=== PATIENT | female | born 1990 | race Two or more races ===

== ENCOUNTER 2025-06-13 12:55 | Emergency (ER) | payer BC, SELFPAY ==
[2025-06-13 13:12] VITALS: BP 127/77; PULSE 108; RESP 18; TEMP 36.9; O2SAT 100; BMI 35.7
--- NOTE | 2025-06-13 13:12 | XR_ITS ---
Examination: Abdomen sonogram, Limited Date and time of exam: June 13, 2025 1350 hrs. Indications: Epigastric pain and right upper abdominal pain onset today Technique: Real-time carlisle scale transabdominal sonographic images of the upper abdomen obtained. Findings: Absent gallbladder Normal common bile duct Pancreatic head 1.7 cm Liver 14.6 cm fatty infiltration Normal hepatopedal portal venous oh Patent IVC Impression: Normal common bile duct Liver normal size fatty infiltration no focal liver lesions.
--- NOTE | 2025-06-13 13:13 | EDNOTE_ITS ---
<Statement entered by Perlita Landis MD - 06/14/25 06:25> As co-signing physician, I was present and available for consult prn. I concur with the plan and care as documented by the midlevel provider. Nausea/Vomit./Diarrhea-RME/HPI General Chief complaint: Nausea/Vomiting/Diarrhea Stated complaint: Vomiting today, abdominal pain Time Seen by Provider: 06/13/25 13:02 Arrival date/time: 06/13/25 12:55 RME / HPI RME / HPI Narrative: 35-year-old female patient came in for evaluation regarding epigastric pain. Patient woke up this morning with epigastric pain, described as crampy, described severity moderate. Patient also complained of loose stool earlier today. Also complained of vomiting, bilious like vomitus. No fever. Abdominal surgery include open cholecystectomy in the past. Denies any other complaints. Related Data Previous Rx's ?Medication ?Instructions ?Recorded dicyclomine 20 mg tablet 20 mg PO Q8HR PRN Abdominal cramps 07/05/19 #10 tabs prochlorperazine maleate 10 mg 10 mg PO QDAY PRN nause a and 07/05/19 tablet vomiting #5 tabs cephalexin 500 mg capsule 500 mg PO TID 7 days #21 cap s 06/13/25 pantoprazole 40 mg tablet,delayed 40 mg PO QDAY #20 ta bs 06/13/25 release (Protonix) Allergies Allergy/AdvReac Type Severity Reaction Status Date / Time hydrocodone Allergy Abdominal Verified 06/13/25 13:00 Pain Review of Systems Review of Systems Narrative Review of Systems: Review of system reviewed and within normal limits except mentioned in HPI ED Exam Narrative Physical exam: VITAL SIGNS: Reviewed. GENERAL APPEARANCE: Alert and interactive, follows commands, no acute distress, HEAD AND FACE: Non-traumatic. ENT: PERRL, pink conjunctivitis, eyelid no trauma, Mucous membrane moist. NECK: Supple, nontender, no nuchal rigidity. CHEST: No tenderness, no crepitus, no paradoxical movement, no retractions. LUNGS: Clear, well ventilated, symmetric, no rales, no wheezing, no ronchi, no stridor, good breath sounds bilaterally. HEART: Regular rate, regular rhythm, no murmur, no gallops. ABDOMEN: Soft, positive bowel sounds, nondistended, no guarding, epigastric tenderness, no rebound, no masses, RECTAL: Deferred. GENITAL: Deferred. NEUROLOGICAL: Gross motor function intact sensory function intact, Appropriate for age. MUSCULOSKELETAL: low back nontender, full range of motion. EXTREMITIES: Nontender, full range of motion. SKIN: Color pink, dry, no rash, no lacerations, no abrasions, no contusions. LYMPHATICS: Deferred. Course Quality Measures none Orders Category Date Time Status US gall bladder Stat Exams 06/13/25 13:12 Completed CBC Stat Lab 06/13/25 14:31 Completed Comprehensive Metabolic Panel Stat Lab 06/13/25 14:31 Completed HCG Qualitative,Urine Stat Lab 06/13/25 14:57 Completed Lipase Stat Lab 06/13/25 14:31 Completed Prothrombin Time with INR Stat Lab 06/13/25 14:31 Completed UA, C/S IF [Urinalysis, C/S if Indicated] Stat Lab 06/13/25 14:57 Completed Urine Culture Stat Lab 06/13/25 14:57 Received Dicyclomine [Bentyl] Med 06/13/25 13:12 Discontinued 10 mg PO X1 ONE Ketorolac Inj [Toradol Inj] Med 06/13/25 13:12 Discontinued 30 mg IM X1 ONE Ondansetron Odt [Zofran Odt] Med 06/13/25 13:15 Discontinued 4 mg PO X1 ONE mg Hyd/Al Hyd/Travis Susp [Maalox Susp] Med 06/13/25 13:12 Discontinued 30 ml PO X1 ONE Vital Signs Vital signs: Vital Signs Temperature 98.4 F 06/13/25 13:12 Pulse Rate 108 H 06/13/25 13:12 Respiratory Rate 18 06/13/25 13:12 Blood Pressure 127/77 06/13/25 13:12 Pulse Oximetry (%) 100 06/13/25 13:12 Oxygen Delivery Method Room Air 06/13/25 13:12 Nausea/Vomiting/Diarrhea MDM Narrative MDM Narrative:: 35-year-old female patient came in for evaluation regarding epigastric pain. Patient woke up this morning with epigastric pain, described as crampy, described severity moderate. Patient also complained of loose stool earlier today. Also complained of vomiting, bilious like vomitus. No fever. Abdominal surgery include open cholecystectomy in the past. Denies any other complaints. Laboratory workup positive for UTI otherwise unremarkable ultrasound also came back normal. Patient was given Maalox, Bentyl and Toradol with complete resolution of symptoms. Patient data External records reviewed:: None Clinical information provided by:: patient Social determinants that could affect healthcare access:: none Patient has the following chronic illnesses:: None How is presenting disease/condition affected by chronic disease/condition?: no chronic disease Evaluation data The following diagnostics were reviewed and interpreted by me:: lab results and radiology exam(s) Lab and/or radiology exams considered but not ordered:: None Interpretation Summary: See results in [facility] Medications / Prescriptions Medications / Prescriptions considered but not ordered:: None Medication administrations:: Medication Administration History Discontinued Medications Al Hydrox/Mg Hydrox/Simethicone (Mg Hyd/Al Hyd/Travis (Maalox Reg) Susp 30 Ml Udc) 30 ml PO X1 ONE Stop: 06/13/25 13:13 Last Admin: 06/13/25 15:02 Dose: 30 ml Documented By: AYAKA Dicyclomine HCl (Dicyclomine 10 Mg Capsule) 10 mg PO X1 ONE Stop: 06/13/25 13:13 Last Admin: 06/13/25 15:01 Dose: 10 mg Documented By: AYAKA Ketorolac Tromethamine (Ketorolac Inj 60 Mg/2 Ml Vial) 30 mg IM X1 ONE Stop: 06/13/25 13:13 Last Admin: 06/13/25 15:03 Dose: 30 mg Documented By: AYAKA Ondansetron HCl (Ondansetron Odt 4 Mg Tabrap) 4 mg PO X1 ONE; Protocol Stop: 06/13/25 13:16 Last Admin: 06/13/25 15:01 Dose: 4 mg Documented By: AYAKA None Consultations Consultation(s) initiated? (list below): No Diagnosis Nausea Differential Diagnosis: dehydration and other (Gastritis, UTI) Most likely diagnosis given after review of the tests above:: Gastritis, UTI Admission Indicated Admission indicated?: not indicated Explain why admission is indicated or not indicated:: None Admission Request Was there a request for admission?: No Disposition Plan Disposition Plan: Discharge Discharge Attestation Discharge Attestation: The patient was given an opportunity to ask questions and understood the discharge instructions. Discharge instructions specifically effects, indications for sooner follow up or return to the emergency department, and the expected course of current diagnosis. Patient condition: Stable Discharge Plan Plan Patient Disposition: HOME (Self Care) Discharge Disposition comment: Stable Prescriptions/Referrals Prescriptions/Med Rec: New cephalexin 500 mg capsule 500 mg PO TID 7 Days Qty: 21 0RF pantoprazole [Protonix] 40 mg tablet,delayed release (DR/EC) 40 mg PO QDAY Qty: 20 0RF No Action prochlorperazine maleate 10 mg tablet 10 mg PO QDAY PRN (Reason: nausea and vomiting) Qty: 5 0RF dicyclomine 20 mg tablet 20 mg PO Q8HR PRN (Reason: Abdominal cramps) Qty: 10 0RF Referrals: Feliz Dove DO [Primary Care Provider] - In 1 week Problem List Clinical Impression: UTI (urinary tract infection), Gastritis Patient/Caregiver Discharge Instructions Discharge Activity: activity as tolerated Education Materials: ED Gastritis (Adult) Additional Instructions: Thank you for the opportunity for serving you today. You are stable for discharged . You are advised to: Follow-up with your PCP in 1 to 2 days Return to ED for worsening of symptoms Increase oral fluids Take medication as prescribed Print Language: Swazi Stand Alone Forms: Alejandra Award Info., Patient Portal Info Letter PA/HIV/AIDS CARE NURSE Supervising Physician PA/HIV/AIDS CARE NURSE Supervising Physician: MD Boby
[2025-06-13 14:46] LABS: Basophils # (Auto) 0.0 Thou/mm3 (0.0-0.2); Basophils % (Auto) 0 % (0-2.5); Eosinophils # (Auto) 0.0 Thou/mm3 (0.0-0.5); Eosinophils % (Auto) 0 % (0-10); Hematocrit 41.0 % (36.0-46.0); Hemoglobin 13.7 g/dL (12.0-16.0); Immature Granulocytes Auto 0.02 Thou/mm3 (0.00-0.00); Lymphocytes # (Auto) 0.9 Thou/mm3 (1.0-4.8); Lymphocytes % (Auto) 7 % (10-50); Mean Corpuscular HGB Conc 33.4 g/dl (31.0-37.0); Mean Corpuscular Hemoglobin 28.5 pg (25.0-35.0); Mean Corpuscular Volume 85 fL (80-100); Monocytes # (Auto) 0.3 Thou/mm3 (0.0-0.8); Monocytes % (Auto) 2 % (0-12); Neutrophils # (Auto) 10.7 Thou/mm3 (1.8-7.7); Neutrophils % (Auto) 90 % (37-80); Nucleated Red Blood Cell # 0.00 Thou/mm3 (0.00-0.00); Nucleated Red Blood Cell % 0 /100 WBC (0); Platelet Count 345 Thou/mm3 (140-440); RDW Standard Deviation 42.6 fL (36.4-46.3); Red Blood Count 4.80 Miln/mm3 (4.00-5.20); White Blood Count 11.9 Thou/mm3 (3.6-11.0)
[2025-06-13] MEDS: ONDANSETRON ODT 4 MG TABRAP PO (15:01)
[2025-06-13] MEDS: DICYCLOMINE 10 MG CAPSULE PO (15:01)
[2025-06-13] MEDS: MG HYD/AL HYD/SIME (Maalox Reg) SUSP 30 ML UDC PO (15:02)
[2025-06-13] MEDS: KETOROLAC INJ 60 MG/2 ML VIAL 30 MG IM (15:03)
[2025-06-13 15:07] LABS: Collection Type, Urine Clean Catch
[2025-06-13 15:18] LABS: Bacteria,Urine Rare; Bilirubin,Urine Negative (Negative); Blood,Urine 2+ (Negative); Clarity,Urine Clear (Clear/Hazy); Color,Urine Yellow (Lt Yel-Yel); Glucose, Urine Negative (Negative); Ketones,Urine Trace (Negative); Leukocyte Esterase,Urine Positive (Negative); Nitrite,Urine Negative (Negative); PH,Urine 5.5 (5.0-7.0); Protein,Urine Negative (Neg - Trace); RBC,Urine 6 /hpf (0-3); Specific Gravity,Urine 1.026 (1.001-1.035); Squamous Epithelial Cell,Urine 3 /hpf (0-5); Urobilinogen,Urine Negative mg/dL (0.0-1.0); WBC,Urine 24 /hpf (0-5)
[2025-06-13 15:19] LABS: INR 1.0 (0.9-1.3); Prothrombin Time 10.9 Seconds (9.0-12.2)
[2025-06-13 15:22] LABS: Alanine Aminotransferase 28 U/L (10-49); Albumin, Serum 4.9 gm/dL (3.5-5.0); Albumin/Globulin Ratio 1.6 (1.2-2.2); Alkaline Phosphatase 53 U/L (46-116); Anion Gap 13 (7-16); Aspartate Amino Transferase 19 U/L (0-34); BUN/Creatinine Ratio 13 Ratio (12-20); Bilirubin,Total 0.5 mg/dL (0.3-1.2); Blood Urea Nitrogen 8 mg/dL (9-23); Calcium 9.9 mg/dL (8.3-10.6); Calcium (Corrected) 9.9 mg/dL (8.5-10.1); Carbon Dioxide 23.1 mMol/L (20.0-31.0); Chloride 104 mMol/L (98-107); Creatinine (Component) 0.6 mg/dL (0.6-1.3); Estimated Creatinine Clearance 127.4 mL/min (>60); Globulin 3.0 gm/dL (2.3-3.5); Glucose 116 mg/dL (74-106); Lipase 26 U/L (12-53); Osmolality,Calculated 278 (275-295); Potassium 3.8 mMol/L (3.4-5.1); Sodium 140 mMol/L (136-145); Total Protein 7.9 gm/dL (5.7-8.2); eGFR > 60 See Note
[2025-06-13 15:32] LABS: HCG Qualitative,Urine Negative
[2025-06-13 15:44] LABS: Culture Indicated,Urine Yes
[2025-06-13 17:43] VITALS: BP 132/67; PULSE 79; RESP 18; TEMP 36.7; O2SAT 100
== END 2025-06-13 17:46 | disposition home or self-care (01) ==
PROVIDERS: Nurse Practitioner Family; Emergency Provider Emergency Medicine; PCP Obstetrics & Gynecology
DX: N39.0 Urinary tract infection, site not specified (principal); K29.70 Gastritis, unspecified, without bleeding; Z90.49 Acquired absence of other specified parts of digestive tract
CPT/HCPCS: 36415; 76705; 80053; 81001; 81025; 83690; 85025; 85610; 87086; 96372; 99283; J1885; Q0162; A9270